=== PATIENT | female | born 1970 | race African-American/Black ===

== ENCOUNTER 2018-04-13 14:53 | Observation (INO) | payer OTHER ==
[2018-04-13 15:35] VITALS: BP 163/92; PULSE 91; RESP 20; TEMP 99; O2SAT 100
[2018-04-13] MEDS ORDERED: SODIUM CHLORIDE 0.9% FLUSH 10 ML FLUSH IVF PRN (17:00)
[2018-04-13] MEDS ORDERED: NITROGLYCERIN 2% OINT 1 GM PACKET TOP ONE (17:00)
[2018-04-13] MEDS ORDERED: ASPIRIN 81 MG CHEW TAB PO ONE (17:00)
--- NOTE | 2018-04-13 17:02 | PD ---
HPI Chief Complaint: Chest Pain Time Seen by Provider: 16:42 Travel History International Travel<30 days: No Contact w/Intl Traveler<30days: No Traveled to known affect area: No History of Present Illness HPI Patient states that over the past 5 days she has had intermittent substernal to midepigastric discomfort and radiates towards her left upper quadrant.... The last episode was approximately 3 hours prior to arrival, and described a similar to what it was before.. Patient denies having any nausea vomiting or associated with this. Patient denies any alleviating or aggravating factors. Patient denies any associated factors such as fever, rash, back pain, flank pain , GI symptoms like nausea vomiting or diarrhea. And also denies any URI symptoms such as runny nose, cough, sore throat. PCP DR ASHLEY HUBER ALL:NKDA SMOKING:DENIES PSHX: Cholecystectomy, , bilateral tubal ligation, knee surgery Past medical history significant for hypercholesterolemia and possibly hypertension. However patient is not on any antihypertensives at this time and is only on Crestor for cholesterol. PFSH Past Medical History Cardiovascular Problems: Yes Social History Tobacco Use: No Allergies-Medications (Allergen,Severity, Reaction): Coded Allergies: No Known Allergies (Unverified , 04/13/18) Reported Meds & Prescriptions Reported Meds & Active Scripts Active Reported Colace (Docusate Sodium) 100 Mg Capsule 100 Mg PO HS Atorvastatin (Atorvastatin Calcium) 10 Mg Tab 5 Mg PO HS Mobic (Meloxicam) 15 Mg Tab 15 Mg PO DAILY Vitamin D-[address] (Cholecalciferol) 1,000 Unit Tab 5,000 Units PO DAILY Aspirin 81 (Aspirin) 81 Mg Tabdr 81 Mg PO DAILY Review of Systems General / Constitutional: No: Fever Eyes: No: Visual changes HENT: No: Headaches Cardiovascular: Positive: Chest Pain or Discomfort Respiratory: No: Shortness of Breath Gastrointestinal: Positive: Abdominal Pain Genitourinary: No: Dysuria Musculoskeletal: No: Pain Skin: No Rash Neurologic: No: Weakness Psychiatric: No: Depression Endocrine: No: Polydipsia Hematologic/Lymphatic: No: Easy Bruising Physical Exam Narrative GENERAL: SKIN: Warm and dry. HEAD: Atraumatic. Normocephalic. EYES: Pupils equal and round. No scleral icterus. No injection or drainage. ENT: No nasal bleeding or discharge. Mucous membranes pink and moist. NECK: Trachea midline. No JVD. CARDIOVASCULAR: Regular rate and rhythm. RESPIRATORY: No accessory muscle use. Clear to auscultation. Breath sounds equal bilaterally. GASTROINTESTINAL: Abdomen soft, non-tender, nondistended. MUSCULOSKELETAL: Extremities without clubbing, cyanosis, or edema. No obvious deformities. NEUROLOGICAL: Awake and alert. No obvious cranial nerve deficits. Motor grossly within normal limits. Five out of 5 muscle strength in the arms and legs. Normal speech. PSYCHIATRIC: Appropriate mood and affect; insight and judgment normal. Data Data Last Documented VS Vital Signs Date Time Temp Pulse Resp B/P (MAP) Pulse Ox O2 Delivery O2 Flow Rate FiO2 04/13/18 17:09 99 04/13/18 15:35 99.0 91 20 163/92 (115) Orders Orders Electrocardiogram (04/13/18 16:50) B-Type Natriuretic Peptide (04/13/18 16:50) Ckmb (Isoenzyme) Profile (04/13/18 16:50) Complete Blood Count With Diff (04/13/18 16:50) Comprehensive Metabolic Panel (04/13/18 16:50) Prothrombin Time / Inr (Pt) (04/13/18 16:50) Act Partial Throm Time (Ptt) (04/13/18 16:50) Troponin I (04/13/18 16:50) Lipase (04/13/18 16:50) Chest, Single Ap (04/13/18 16:50) Ecg Monitoring (04/13/18 16:50) Bilateral Bp Monitoring (04/13/18 16:50) Iv Access Insert/Monitor (04/13/18 16:50) Oximetry (04/13/18 16:50) Oxygen Administration (04/13/18 16:50) Aspirin Chew (Aspirin Chew) (04/13/18 17:00) Nitroglycerin 2% Oint (Nitroglycerin 2% (04/13/18 17:00) Sodium Chloride 0.9% Flush (Ns Flush) (04/13/18 17:00) CKMB (04/13/18 17:07) CKMB% (04/13/18 17:07) Admit Order (Ed Use Only) (04/13/18 20:09) Labs Laboratory Tests Test 04/13/18 17:07 White Blood Count 5.6 TH/MM3 Red Blood Count 4.99 MIL/MM3 Hemoglobin 13.5 GM/DL Hematocrit 40.5 % Mean Corpuscular Volume 81.1 FL Mean Corpuscular Hemoglobin 27.0 PG Mean Corpuscular Hemoglobin Concent 33.2 % Red Cell Distribution Width 15.0 % Platelet Count 228 TH/MM3 Mean Platelet Volume 8.4 FL Neutrophils (%) (Auto) 44.6 % Lymphocytes (%) (Auto) 45.1 % Monocytes (%) (Auto) 8.8 % Eosinophils (%) (Auto) 0.9 % Basophils (%) (Auto) 0.6 % Neutrophils # (Auto) 2.5 TH/MM3 Lymphocytes # (Auto) 2.5 TH/MM3 Monocytes # (Auto) 0.5 TH/MM3 Eosinophils # (Auto) 0.1 TH/MM3 Basophils # (Auto) 0.0 TH/MM3 CBC Comment DIFF FINAL Differential Comment Prothrombin Time 10.6 SEC Prothromb Time International Ratio 1.0 RATIO Activated Partial Thromboplast Time 24.0 SEC Blood Urea Nitrogen 6 MG/DL Creatinine 0.81 MG/DL Random Glucose 80 MG/DL Total Protein 7.3 GM/DL Albumin 3.7 GM/DL Calcium Level 8.5 MG/DL Alkaline Phosphatase 93 U/L Aspartate Amino Transf (AST/SGOT) 18 U/L Alanine Aminotransferase (ALT/SGPT) 26 U/L Total Bilirubin 0.8 MG/DL Sodium Level 144 MEQ/L Potassium Level 3.5 MEQ/L Chloride Level 109 MEQ/L Carbon Dioxide Level 28.1 MEQ/L Anion Gap 7 MEQ/L Estimat Glomerular Filtration Rate 92 ML/MIN Total Creatine Kinase 271 U/L Creatine Kinase MB 0.7 NG/ML Creatine Kinase MB % 0.3 % Troponin I LESS THAN 0.02 NG/ML B-Type Natriuretic Peptide 20 PG/ML Lipase 151 U/L [facility] Medical Decision Making Medical Screen Exam Complete: Yes Emergency Medical Condition: Yes Medical Record Reviewed: Yes Interpretation(s) Normal sinus rhythm, normal intervals, nonspecific ST-T wave changes Differential Diagnosis STEMI versus non-STEMI versus pancreatitis versus hepatitis versus gastritis versus dyspeptic syndrome Narrative Course Patient was signed out to pending lab results and disposition to chest pain center if appropriate Diagnosis Primary Impression: Chest pain rule out OK Admitting Information Admitting Physician Requests: Observation Disposition: 01 DISCHARGE HOME Condition: Stable Devan Johns MD April 13, 2018 17:02
[2018-04-13 17:09] VITALS: O2SAT 99
[2018-04-13] MEDS ORDERED: VITATAB25 PO (17:19)
[2018-04-13] MEDS ORDERED: ATOR10TA15 PO (17:19)
[2018-04-13] MEDS ORDERED: COLA100C5 PO (17:19)
[2018-04-13] MEDS ORDERED: MOBI15TA PO (17:19)
[2018-04-13] MEDS ORDERED: ASPI1TAB57 PO (17:19)
--- NOTE | 2018-04-13 17:49 | RADRPT ---
EXAM DATE/TIME: 04/13/2018 17:11 [facility] COMPARISON: No previous studies available for comparison. INDICATIONS : Left sided chest pain for five days. MEDICAL HISTORY : None. SURGICAL HISTORY : None. ENCOUNTER: Initial ACUITY: 4 - 6 days PAIN SCORE: 6/10 LOCATION: Left chest FINDINGS: Minimal elevation left hemidiaphragm minimal parenchymal changes left base. Right lung clear. The heart and pulmonary vascularity are normal. The portion of the bony skeleton visualized is unremarkable. CONCLUSION: Minimal elevation left hemidiaphragm with minimal parenchymal changes left base. Correlation suggest ed. Antoine Song MD FACR on April 13, 2018 at 17:45 Board Certified Radiologist. This report was verified electronically.
[2018-04-13 18:13] LABS: AUTOMATED NEUTROPHIL # 2.5 TH/MM3 (1.8-7.7); BASOPHIL % 0.6 % (0.0-2.0); EOSINOPHIL # 0.1 TH/MM3 (0-0.4); EOSINOPHIL % 0.9 % (0.0-4.0); HEMATOCRIT 40.5 % (35.0-46.0); HEMOGLOBIN 13.5 GM/DL (11.6-15.3); LYMPH % 45.1 % (9.0-44.0); LYMPHOCYTE # 2.5 TH/MM3 (1.0-4.8); MEAN CELL VOLUME 81.1 FL (80.0-100.0); MEAN CORPUSCULAR HGB CONC 33.2 % (32.0-36.0); MEAN PLATELET VOLUME 8.4 FL (7.0-11.0); MONO % 8.8 % (0.0-8.0); MONOCYTE # 0.5 TH/MM3 (0-0.9); NEUT % 44.6 % (16.0-70.0); PLATELET COUNT 228 TH/MM3 (150-450); RED BLOOD COUNT 4.99 MIL/MM3 (4.00-5.30); WHITE BLOOD COUNT 5.6 TH/MM3 (4.0-11.0)
[2018-04-13 18:25] LABS: PROTHROMBIN TIME - PATIENT 10.6 SEC (9.8-11.6)
[2018-04-13 18:48] LABS: ALBUMIN 3.7 GM/DL (3.4-5.0); ALKALINE PHOSPHATASE 93 U/L (45-117); ALT (GPT) 26 U/L (10-53); AST (GOT) 18 U/L (15-37); BLOOD UREA NITROGEN 6 MG/DL (7-18); CALCIUM 8.5 MG/DL (8.5-10.1); CREATININE 0.81 MG/DL (0.50-1.00); GLOMERULAR FILTRATION RATE 92 ML/MIN (>89); GLUCOSE,RANDOM 80 MG/DL (74-106); SODIUM (NA) 144 MEQ/L (136-145); TOTAL BILIRUBIN ADULT 0.8 MG/DL (0.2-1.0); TOTAL PROTEIN 7.3 GM/DL (6.4-8.2)
[2018-04-13 18:49] LABS: BICARBONATE 28.1 MEQ/L (21.0-32.0); CHLORIDE 109 MEQ/L (98-107); TROPONIN I LESS THAN 0.02 NG/ML (0.02-0.05)
--- NOTE | 2018-04-13 20:08 | PD ---
Data Data Last Documented VS Vital Signs Date Time Temp Pulse Resp B/P (MAP) Pulse Ox O2 Delivery O2 Flow Rate FiO2 04/13/18 17:09 99 04/13/18 15:35 99.0 91 20 163/92 (115) Orders Orders Electrocardiogram (04/13/18 16:50) B-Type Natriuretic Peptide (04/13/18 16:50) Ckmb (Isoenzyme) Profile (04/13/18 16:50) Complete Blood Count With Diff (04/13/18 16:50) Comprehensive Metabolic Panel (04/13/18 16:50) Prothrombin Time / Inr (Pt) (04/13/18 16:50) Act Partial Throm Time (Ptt) (04/13/18 16:50) Troponin I (04/13/18 16:50) Lipase (04/13/18 16:50) Chest, Single Ap (04/13/18 16:50) Ecg Monitoring (04/13/18 16:50) Bilateral Bp Monitoring (04/13/18 16:50) Iv Access Insert/Monitor (04/13/18 16:50) Oximetry (04/13/18 16:50) Oxygen Administration (04/13/18 16:50) Aspirin Chew (Aspirin Chew) (04/13/18 17:00) Nitroglycerin 2% Oint (Nitroglycerin 2% (04/13/18 17:00) Sodium Chloride 0.9% Flush (Ns Flush) (04/13/18 17:00) CKMB (04/13/18 17:07) CKMB% (04/13/18 17:07) Labs Laboratory Tests Test 04/13/18 17:07 White Blood Count 5.6 TH/MM3 Red Blood Count 4.99 MIL/MM3 Hemoglobin 13.5 GM/DL Hematocrit 40.5 % Mean Corpuscular Volume 81.1 FL Mean Corpuscular Hemoglobin 27.0 PG Mean Corpuscular Hemoglobin Concent 33.2 % Red Cell Distribution Width 15.0 % Platelet Count 228 TH/MM3 Mean Platelet Volume 8.4 FL Neutrophils (%) (Auto) 44.6 % Lymphocytes (%) (Auto) 45.1 % Monocytes (%) (Auto) 8.8 % Eosinophils (%) (Auto) 0.9 % Basophils (%) (Auto) 0.6 % Neutrophils # (Auto) 2.5 TH/MM3 Lymphocytes # (Auto) 2.5 TH/MM3 Monocytes # (Auto) 0.5 TH/MM3 Eosinophils # (Auto) 0.1 TH/MM3 Basophils # (Auto) 0.0 TH/MM3 CBC Comment DIFF FINAL Differential Comment Prothrombin Time 10.6 SEC Prothromb Time International Ratio 1.0 RATIO Activated Partial Thromboplast Time 24.0 SEC Blood Urea Nitrogen 6 MG/DL Creatinine 0.81 MG/DL Random Glucose 80 MG/DL Total Protein 7.3 GM/DL Albumin 3.7 GM/DL Calcium Level 8.5 MG/DL Alkaline Phosphatase 93 U/L Aspartate Amino Transf (AST/SGOT) 18 U/L Alanine Aminotransferase (ALT/SGPT) 26 U/L Total Bilirubin 0.8 MG/DL Sodium Level 144 MEQ/L Potassium Level 3.5 MEQ/L Chloride Level 109 MEQ/L Carbon Dioxide Level 28.1 MEQ/L Anion Gap 7 MEQ/L Estimat Glomerular Filtration Rate 92 ML/MIN Total Creatine Kinase 271 U/L Creatine Kinase MB 0.7 NG/ML Creatine Kinase MB % 0.3 % Troponin I LESS THAN 0.02 NG/ML B-Type Natriuretic Peptide 20 PG/ML Lipase 151 U/L [facility] Supervised Visit with SHAYAN: No Narrative Course This case is checked out to me by Dr. Johns at 5 PM. The patient came in with left and central chest pain. Chest pain workup was ordered and he recommended chest pain center observation assuming troponin and other things were not abnormal. I met with the patient. We discussed her chest pain. She does not have any cardiac history and has never had a stress test. Her cardiac enzymes are normal and her general blood counts are normal I reviewed her EKG which shows sinus rhythm without ST elevation or ectopy Her chest x-ray is normal We discussed chest pain center observation. she is somewhat hesitant but has now agreed and that will be the disposition. Diagnosis Primary Impression: Chest pain Qualified Codes: R07.9 - Chest pain, unspecified Additional Impression: Obesity Qualified Codes: E66.9 - Obesity, unspecified Admitting Information Admitting Physician Requests: Observation Severo Brown MD April 13, 2018 20:08
[2018-04-13] MEDS ORDERED: SODIUM CHLORIDE 0.9% FLUSH 10 ML FLUSH IV FLUSH PRN (20:30)
[2018-04-13 21:01] VITALS: BP 157/83; PULSE 81; RESP 18; TEMP 98.2; O2SAT 100
[2018-04-13] MEDS: SODIUM CHLORIDE 0.9% FLUSH 10 ML FLUSH IV FLUSH SCH (21:05)
[2018-04-13 21:23] VITALS: PULSE 78
[2018-04-13 22:36] LABS: TROPONIN I LESS THAN 0.02 NG/ML (0.02-0.05)
[2018-04-13 23:10] VITALS: BP 154/89; PULSE 78; RESP 17; TEMP 98.1; O2SAT 96
[2018-04-13 23:45] LABS: TROPONIN I LESS THAN 0.02 NG/ML (0.02-0.05)
[2018-04-14 00:34] VITALS: PULSE 68
[2018-04-14] MEDS ORDERED: ACETAMINOPHEN 500 MG CPLT PO PRN (01:00)
[2018-04-14] MEDS ORDERED: ONDANSETRON HCL 4 MG/2 ML VIAL IV PUSH PRN (01:00)
[2018-04-14] MEDS ORDERED: ONDANSETRON ODT 4 MG TAB PO PRN (01:00)
[2018-04-14 03:30] VITALS: BP 118/78; PULSE 87; RESP 16; TEMP 98.1; O2SAT 98
[2018-04-14 04:05] VITALS: PULSE 69
[2018-04-14 08:00] VITALS: PULSE 74
[2018-04-14 08:03] VITALS: BP 125/70; PULSE 81; RESP 20; TEMP 98; O2SAT 96
--- NOTE | 2018-04-14 08:44 | EKG ---
Date Performed: 04/13/2018 Time Performed: 21:06:10 PTAGE: 47 years EKG: Sinus rhythm NORMAL ECG WARNING: DATA QUALITY MAY AFFECT INTERPRETATION V4 missing Since PREVIOUS TRACING , no significant change noted PREVIOUS TRACIN04/13/2018 20.38 DOCTOR: Mabel Hensley Interpretating Date/Time 04/14/2018 08:43:09
--- NOTE | 2018-04-14 08:44 | EKG ---
Date Performed: 04/13/2018 Time Performed: 20:38:47 PTAGE: 47 years EKG: Sinus rhythm NONSPECIFIC T-WAVE ABNORMALITY BORDERLINE ECG Since PREVIOUS TRACING , no significant change noted PREVIOUS TRACIN04/13/2018 15.42 DOCTOR: Mabel Hensley Interpretating Date/Time 04/15/2018 07:02:40
--- NOTE | 2018-04-14 08:45 | EKG ---
Date Performed: 04/13/2018 Time Performed: 23:10:14 PTAGE: 47 years EKG: Sinus rhythm NONSPECIFIC T-WAVE ABNORMALITY BORDERLINE ECG Since PREVIOUS TRACING , no significant change noted PREVIOUS TRACIN04/13/2018 21.06 DOCTOR: Mabel Hensley Interpretating Date/Time 04/14/2018 08:43:51
--- NOTE | 2018-04-14 08:50 | EKG ---
Date Performed: 04/13/2018 Time Performed: 15:42:18 PTAGE: 47 years EKG: Sinus rhythm Non-specific ST changes Since PREVIOUS TRACING , no significant change noted DOCTOR: Mabel Hensley Interpretating Date/Time 04/14/2018 08:49:00
[2018-04-14] MEDS: SODIUM CHLORIDE 0.9% FLUSH 10 ML FLUSH IV FLUSH SCH (08:51)
[2018-04-14] MEDS ORDERED: ASPIRIN 325 MG TAB PO SCH (09:00)
--- NOTE | 2018-04-14 09:52 | HHI.HP ---
[facility] Primary Care Physician Shannan Sanderson M.D. Chief Complaint Chest pain History of Present Illness This is a 47-year-old female with history of hyperlipidemia that presents to ED via private vehicle complaining of 5 days worth of intermittent left-sided chest discomfort he points to underneath the left breast indicate where the discomfort is located. Denies shortness of breath nausea and diaphoresis except for having one episode of nausea 3 days ago. This discomfort occurs several times a day but has found nothing in particular to bring on the discomfort. Denies recent cold symptoms. Denies fevers or chills. Denies recent travel. She cannot recall anything that may have brought on this discomfort. Denies history of CAD and cannot recall any recent stress test. Review of Systems General: Patient denies fevers, chills, and recent travel. HEENT: Patient denies headache, sore throat, difficulty swallowing. Cardiovascular: Has the chest discomfort as mentioned above. Denies sensation of heart beating rapidly or irregularly. No syncope. Respiratory: Denies shortness of breath or inspirational chest discomfort. Denies coughing wheezing or hemoptysis. GI: One episode of nausea 3 days ago. Patient denies vomiting, diarrhea, abdominal pain, bloody stools. Musculoskeletal: Patient denies joint pain or edema. Denies calf pain or edema. Neurovascular: Patient denies numbness, tingling, weakness in extremities. Denies headache. Endocrine: Denies polyuria and polydipsia. Hematologic: Denies easy bruising. Skin: Denies rash or itching. Past Family Social History Allergies: Coded Allergies: No Known Allergies (Unverified , 04/13/18) Past Medical History Hyperlipidemia. Denies hypertension, diabetes, CAD, and tobacco abuse. Past Surgical History Cholecystectomy, , tubal ligation, knee surgery. Reported Medications Reported Meds & Active Scripts Active Reported Colace (Docusate Sodium) 100 Mg Capsule 100 Mg PO HS Atorvastatin (Atorvastatin Calcium) 10 Mg Tab 5 Mg PO HS Mobic (Meloxicam) 15 Mg Tab 15 Mg PO DAILY Vitamin D-[address] (Cholecalciferol) 1,000 Unit Tab 5,000 Units PO DAILY Aspirin 81 (Aspirin) 81 Mg Tabdr 81 Mg PO DAILY Active Ordered Medications Current Medications Medications (Trade) Dose Ordered Sig/Lyle Route Start Time Stop Time Status Last Admin (NS Flush) 2 ml UNSCH PRN IV FLUSH 04/13/18 20:30 (NS Flush) 2 ml BID IV FLUSH 04/13/18 21:00 04/14/18 08:51 (Aspirin) 325 mg DAILY PO 04/14/18 09:00 04/14/18 08:50 (Tylenol) 500 mg Q4H PRN PO 04/14/18 01:00 (Zofran Odt) 4 mg Q6H PRN PO 04/14/18 01:00 Family History Denies family history of CAD. Social History Lifetime non-smoker. Denies alcohol or illicit drug use. Physical Exam Vital Signs Vital Signs Date Time Temp Pulse Resp B/P (MAP) Pulse Ox O2 Delivery O2 Flow Rate FiO2 04/14/18 08:03 98.0 81 20 125/70 (88) 96 04/14/18 04:05 69 04/14/18 03:30 98.1 87 16 118/78 (91) 98 04/14/18 00:34 68 04/13/18 23:10 98.1 78 17 154/89 (110) 96 04/13/18 21:38 21 04/13/18 21:23 78 04/13/18 21:01 98.2 81 18 157/83 (107) 100 04/13/18 17:09 99 04/13/18 17:09 99 04/13/18 15:35 99.0 91 20 163/92 (115) 100 Physical Exam GENERAL: This is a well-nourished, well-developed patient, in no apparent distress. Patient is obese at 136 kg. Patient speaks in clear complete sentences. Patient is pleasant. HEENT: Head is atraumatic and normocephalic. Neck is supple without lymphadenopathy and trachea is midline. No JVD or carotid bruits. CARDIOVASCULAR: Regular rate and rhythm without murmurs, gallops, or rubs. RESPIRATORY: Clear to auscultation. Breath sounds equal bilaterally. No wheezes , rales, or rhonchi. Chest wall is nontender. No use of accessory muscles. GASTROINTESTINAL: Abdomen is nontender, nondistended. Abdomen soft. No obvious pulsatile mass or bruit. No CVA tenderness. Strong femoral pulses bilaterally. Normal bowel sounds in all quadrants. MUSCULOSKELETAL: Patient is moving upper and lower extremities freely. No calf tenderness or edema, no Homans sign. Strong pulses in upper and lower extremities. NEUROLOGICAL: Patient is alert and oriented. Cranial nerves 2-12 are grossly intact. No focal deficits and speech is clear. SKIN: No rash and turgor is normal. Laboratory Laboratory Tests Test 04/13/18 17:07 04/13/18 20:20 04/13/18 23:10 White Blood Count 5.6 Red Blood Count 4.99 Hemoglobin 13.5 Hematocrit 40.5 Mean Corpuscular Volume 81.1 Mean Corpuscular Hemoglobin 27.0 Mean Corpuscular Hemoglobin Concent 33.2 Red Cell Distribution Width 15.0 Platelet Count 228 Mean Platelet Volume 8.4 Neutrophils (%) (Auto) 44.6 Lymphocytes (%) (Auto) 45.1 Monocytes (%) (Auto) 8.8 Eosinophils (%) (Auto) 0.9 Basophils (%) (Auto) 0.6 Neutrophils # (Auto) 2.5 Lymphocytes # (Auto) 2.5 Monocytes # (Auto) 0.5 Eosinophils # (Auto) 0.1 Basophils # (Auto) 0.0 CBC Comment DIFF FINAL Differential Comment Prothrombin Time 10.6 Prothromb Time International Ratio 1.0 Activated Partial Thromboplast Time 24.0 Blood Urea Nitrogen 6 Creatinine 0.81 Random Glucose 80 Total Protein 7.3 Albumin 3.7 Calcium Level 8.5 Alkaline Phosphatase 93 Aspartate Amino Transf (AST/SGOT) 18 Alanine Aminotransferase (ALT/SGPT) 26 Total Bilirubin 0.8 Sodium Level 144 Potassium Level 3.5 Chloride Level 109 Carbon Dioxide Level 28.1 Anion Gap 7 Estimat Glomerular Filtration Rate 92 Total Creatine Kinase 271 224 200 Creatine Kinase MB 0.7 0.6 0.8 Creatine Kinase MB % 0.3 0.3 0.4 Troponin I LESS THAN 0.02 LESS THAN 0.02 LESS THAN 0.02 B-Type Natriuretic Peptide 20 Lipase 151 Result Diagram: 04/13/18 1707 04/13/18 1707 Imaging Last 48 hours Impressions Chest X-Ray 04/13/18 1650 Signed Impressions: Service Date/Time: Friday, April 13, 2018 17:11 - CONCLUSION: Minimal elevation left hemidiaphragm with minimal parenchymal changes left base. Correlation suggested. Antoine Song MD FACR Course EKGs are sinus rhythm without significant ST segment depressions or elevations. Caprini VTE Risk Assessment Caprini VTE Risk Assessment: No/Low Risk (score <= 1) Caprini Risk Assessment Model Point Value = 1 Point Value = 2 Point Value = 3 Point Value = 5 Age 41-60 Minor surgery BMI > 25 kg/m2 Swollen legs Varicose veins or History of unexplained or recurrent spontaneous Oral contraceptives or hormone replacement Sepsis (< 1 month) Serious lung disease, including pneumonia (< 1 month) Abnormal pulmonary function Acute myocardial infarction Congestive heart failure (< 1 month) History of inflammatory bowel disease Medical patient at bed rest Age 61-74 Arthroscopic surgery Major open surgery (> 45 min) Laparoscopic surgery (> 45 min) Malignancy Confined to bed (> 72 hours) Immobilizing plaster cast Central venous access Age >= 75 History of VTE Family history of VTE Factor V Leiden Prothrombin [id number] Lupus anticoagulant Anticardiolipin antibodies Elevated serum homocysteine Heparin-induced thrombocytopenia Other congenital or acquired thrombophilia Stroke (< 1 month) Elective arthroplasty Hip, pelvis, or leg fracture Acute spinal cord injury (< 1 month) Prophylaxis Regimen Total Risk Factor Score Risk Level Prophylaxis Regimen 0-1 Low Early ambulation 2 Moderate Order ONE of the following: *Sequential Compression Device (SCD) *Heparin 5000 units SQ BID 3-4 Higher Order ONE of the following medications: *Heparin 5000 units SQ TID *Enoxaparin/Lovenox 40 mg SQ daily (WT < 150 kg, CrCl > 30 mL/min) *Enoxaparin/Lovenox 30 mg SQ daily (WT < 150 kg, CrCl > 10-29 mL/min) *Enoxaparin/Lovenox 30 mg SQ BID (WT < 150 kg, CrCl > 30 mL/min) AND/OR *Sequential Compression Device (SCD) 5 or more Highest Order ONE of the following medications: *Heparin 5000 units SQ TID (Preferred with Epidurals) *Enoxaparin/Lovenox 40 mg SQ daily (WT < 150 kg, CrCl > 30 mL/min) *Enoxaparin/Lovenox 30 mg SQ daily (WT < 150 kg, CrCl > 10-29 mL/min) *Enoxaparin/Lovenox 30 mg SQ BID (WT < 150 kg, CrCl > 30 mL/min) AND *Sequential Compression Device (SCD) Assessment and Plan Assessment and Plan * Chest pain: Patient has had serial cardiac enzymes and EKGs for ruling out purposes. She was seen by Dr. Hensley of cardiology in the chest pain center. She will undergo a Barrie protocol ETT and be discharge if the stress test is nonischemic with instructions to follow-up with PCP and return to ED for interval issues. * Hyperlipidemia: Continue medication. * Obesity: Patient has been counseled importance of diet, exercise, and weight loss. Patient is stable at this time. She is agreeable to this plan. Anthony Mora April 14, 2018 09:52
[2018-04-14] MEDS ORDERED: REGADENOSON INJ 0.4 MG/5 ML SYR ONE (12:59)
--- NOTE | 2018-04-14 14:57 | RADRPT ---
EXAM DATE/TIME: 04/14/2018 12:38 [facility] COMPARISON: No previous studies available for comparison. INDICATIONS : Left sided chest pain. Angina. DOSE: 35 mCi Tc99m Myoview at stress. 11 mCi Tc99m Myoview at rest. 0.4 mg Lexiscan STRESS SYMPTOMS: Dyspnea, nausea and stomach pain. EJECTION FRACTION: 59% MEDICAL HISTORY : Hypercholesterolemia. SURGICAL HISTORY : Tubal ligation. Cholecystectomy. Total knee replacement, left. ENCOUNTER: Initial ACUITY: 1 day PAIN SCALE: 0/10 LOCATION: Left chest TECHNIQUE: The patient underwent pharmacologic stress with infusion of prescribed dose. Continuous ECG tracing was monitored during stress. Gated SPECT imaging was performed after stress and conventional SPECT i maging was performed at rest. The examination was performed on a SPECT/CT scanner, both attenuation and non-corrected datasets were reviewed. FINDINGS: DISTRIBUTION: The maximum perfused segment at stress is in the lateral wall. PERFUSION STUDY: Very small focal stress-induced defect in the apical wall. GATED STUDY: There is intact wall motion and thickening without hypokinetic or dyskinetic segments. CONCLUSION: 1. Very small focal region of stress-induced ischemia in the apical wall. 2. No focal wall motion abnormality with EF of 59%. RISK CATEGORY: Low (<1% Annual Mortality Rate) Sebas Dodd MD on April 14, 2018 at 14:51 Board Certified Radiologist. This report was verified electronically.
--- NOTE | 2018-04-14 15:27 | HHI.DCPOC ---
Discharge Care Plan Diagnosis: (1) Chest pain (2) Hyperlipidemia (3) Obesity Goals to Promote Your Health * To prevent worsening of your condition and complications * To maintain your health at the optimal level Directions to Meet Your Goals Take your medications as prescribed Follow your dietary instruction Follow activity as directed Keep your appointments as scheduled Take your immunizations and boosters as scheduled If your symptoms worsen call your PCP, if no PCP go to Urgent Care Center or Emergency Room Smoking is Dangerous to Your Health. Avoid second hand smoke Call the 24-hour hour crisis hotline for domestic abuse at Anthony Mora April 14, 2018 15:27
--- NOTE | 2018-04-14 16:55 | TR ---
Date Performed: 04/14/2018 Time Performed: 09:30:23 DOCTOR: Mabel Hensley DRUG LIST: CLINICAL HISTORY: REASON FOR TEST: REASON FOR ENDING: OBSERVATION: CONCLUSION: SALVATORE PROTOCOL ETT. NO CP. TEST STOPPED AFTER REACHING GOAL HR SECONDARY TO SOB AND LEG FATIGUE.Maximum XP=073 % Max HR Achieved=86.0% Maximum QN=154/96 Total Exercise Time=3:00 COMMENTS:
--- NOTE | 2018-04-14 16:58 | TR ---
Date Performed: 04/14/2018 Time Performed: 12:58:24 DOCTOR: Mabel Hensley DRUG LIST: CLINICAL HISTORY: REASON FOR TEST: REASON FOR ENDING: OBSERVATION: CONCLUSION: Lexiscan stress test was performed under standard four minute protocol. Radionuclid e was injected one minute prior to ending the test. Borderline electrocardiographic abormalities were present to suggest ischemia. Nuclear imaging and interpretation are pending. COMMENTS: Borderline ST changes
== END 2018-04-14 16:09 | disposition home or self-care (01) ==
LOC: NEPD 14:53 → NEDA 20:11 → NEPHCDU 20:54
PROVIDERS: ADMIT Internal Medicine Cardiovascular Disease; ATTEND Internal Medicine Cardiovascular Disease
DX: R07.89 Other chest pain (principal); R11.0 Nausea; E78.5 Hyperlipidemia, unspecified; R91.8 Other nonspecific abnormal finding of lung field; E66.9 Obesity, unspecified; Z79.82 Long term (current) use of aspirin
CPT/HCPCS: 71045; 78452; 80053; 82550; 82552; 83690; 83880; 84484; 85025; 85610; 85730; 93005; 93017; 99285; A9502; G0378; J2785